=== PATIENT | female | born 1995 | race African-American/Black ===

== ENCOUNTER 2017-04-01 20:00 | Inpatient (IN) ==
[2017-04-01] MEDS ORDERED: LIDOCAINE 1% 50 ML VIAL ONE (20:20)
[2017-04-01] MEDS ORDERED: MEPERIDINE 50 MG/1 ML VIAL ONE (20:20)
[2017-04-01] MEDS ORDERED: CARBOPROST TROMETHAMINE 250 MCG/ML AMP IM ONE (20:21)
[2017-04-01] MEDS ORDERED: miSOPROStol 200 MCG TABLET ONE (20:21)
[2017-04-01] MEDS ORDERED: ONDANSETRON 4 MG/2 ML VIAL ONE ×2 (20:21→21:16)
[2017-04-01] MEDS ORDERED: OXYTOCIN/LR 20 UNIT/1,000 ML BAG IV ONE ×3 (20:21→21:49)
[2017-04-01] MEDS ORDERED: ACETAMINOPHEN 325 MG TABLET PO PRN ×2 (20:34→21:49)
[2017-04-01] MEDS ORDERED: BUTORPHANOL 2 MG/ML VIAL IV PRN (20:34)
[2017-04-01] MEDS ORDERED: ONDANSETRON 4 MG/2 ML VIAL IV PRN ×2 (20:34→21:49)
[2017-04-01] MEDS ORDERED: ceFAZolin 2,000 MG in PREMIX 1 EACH IV ONE (20:56)
[2017-04-01] MEDS ORDERED: LACTATED RINGERS 1,000 ML IV SCH ×2 (21:00→22:00)
[2017-04-01] MEDS ORDERED: CITRIC ACID/SODIUM CITRATE 30 ML UDCUP ONE (21:02)
[2017-04-01] MEDS ORDERED: SUCCINYLCHOLINE 200 MG/10 ML VIAL ONE (21:16)
[2017-04-01] MEDS ORDERED: PROPOFOL 200 MG/20 ML VIAL IV ONE (21:16)
[2017-04-01 21:29] LABS: Basophils % 0.3 % (0.0-0.8); Eosinophils # 0.1 10*3/uL (0.0-0.87); Eosinophils % 0.6 % (0.00-10.9); Hemoglobin 11.5 GM/DL (12.0-16.0); Immature Granulocytes % 0.9 %; Immature Granulocytes Absolute 0.07 #; Lymphocytes % 24.7 % (21.3-54.2); Mean Corpuscular HGB Conc 34.8 GM/DL (32-36); Mean Corpuscular Hemoglobin 27 PG (27-34); Mean Corpuscular Volume 77.1 FL (87-102); Monocytes # 0.5 10*3/uL (0.11-0.8); Monocytes % 6.6 % (1.7-12.7); Neutrophils # 5.3 10*3/uL (1.4-7.4); Neutrophils % 66.9 % (38.7-73.9); Platelet Count 263 T/CUMM (130-400); Red Blood Count 4.28 MC/CUMM (3.8-5.5); Red Cell Distribution Width 12.3 % (9.3-17.3); White Blood Count 7.9 T/CUMM (4-12)
[2017-04-01] MEDS ORDERED: RHO(D) IMMUNE GLOBULIN 300 MCG SYRINGE IM ONE (21:49)
[2017-04-01] MEDS ORDERED: SIMETHICONE CHEW 80 MG TABLET PO PRN (21:49)
[2017-04-01] MEDS ORDERED: MAGNESIUM HYDROXIDE SUSP 30 ML UDCUP PO PRN (21:49)
--- NOTE | 2017-04-01 21:52 | Operative Note ---
Date of procedure: 04/01/17 Procedure Preformed: Following informed consent patient taken to the operating room where general anesthesia was administered without difficulty. She is prepped and draped in usual fashion placed in dorsal supine position with a leftward tilt. A Pfannenstiel skin incision made with scalpel and carried through to the underlying layer fascia with Bovie. The fascia with incision was excised midlines to lateral with Owens scissors. The inferior and superior aspects of the fascial incision were grasped with [place] clamps, elevated and the rectus muscles dissected off bluntly. The rectus muscles were then midline and the peritoneum identified and entered with Metzenbaum scissors. The was then extends superiorly and inferiorly with good visualization of the bladder. Bladder blade was then reinserted and the uterus incised in transverse fashion with scalpel. A stillborn was delivered and handed off to the waiting windows systems admin. Baby was extremely hydropic with no signs of life, cord blood was sent. The placenta was then removed manually and the uterus cleared all clots and debris. The uterine incision with #1 Vicryl in a running locked fashion. A second layer same suture was used to obtain hemostasis. The gutters and cleared of all clots and debris and once again hemostasis will be satisfactory. Therefore all instruments from the abdomen. The fascia was repaired with [0] Vicryl in a running fashion. Skin pleasant and soft geoffrey. At the end of the procedure all sponge lap needle counts correct 2. Baby and mother in stable condition. Surgeon / Physician: Kevin De La Cruz Post-op diagnosis: other (Stillborn infant with evidence of hydrops) Findings: Liveborn Specimens: other (Placenta) Estimated blood loss: other (500 mL) Condition: stable Anesthesia: GETA Disposition: floor
[2017-04-01] MEDS ORDERED: fentaNYL 100 MCG/2 ML VIAL ONE (22:19)
[2017-04-01] MEDS: MEPERIDINE 50 MG/1 ML VIAL IV PRN (23:30)
[2017-04-02] MEDS: IBUPROFEN 800 MG TABLET PO PRN ×2 (02:00→13:00)
[2017-04-02] MEDS: MEPERIDINE 50 MG/1 ML VIAL IV PRN ×2 (02:30→05:40)
[2017-04-02 06:44] LABS: Basophils % 0.2 % (0.0-0.8); Immature Granulocytes % 0.5 %; Immature Granulocytes Absolute 0.07 #; Lymphocytes # 1.1 10*3/uL (1.4-4.0); Lymphocytes % 8.6 % (21.3-54.2); Mean Corpuscular HGB Conc 35.2 GM/DL (32-36); Mean Corpuscular Hemoglobin 27 PG (27-34); Mean Corpuscular Volume 77.6 FL (87-102); Mean Platelet Volume 10.7 FL (9.6-12.0); Monocytes # 0.8 10*3/uL (0.11-0.8); Monocytes % 6.2 % (1.7-12.7); Neutrophils # 11.1 10*3/uL (1.4-7.4); Neutrophils % 84.5 % (38.7-73.9); Red Cell Distribution Width 12.3 % (9.3-17.3)
[2017-04-02 06:56] LABS: Hemoglobin 8.8 GM/DL (12.0-16.0); Platelet Count 183 T/CUMM (130-400); Red Blood Count 3.22 MC/CUMM (3.8-5.5); White Blood Count 13.1 T/CUMM (4-12)
[2017-04-02] MEDS: DOCUSATE SODIUM 100 MG CAPSULE PO SCH ×2 (08:37→21:15)
[2017-04-02] MEDS: MULTIVITAMIN (PRENATAL) TABLET PO SCH (08:37)
--- NOTE | 2017-04-02 13:37 | OB/GYN Progress Note ---
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 - Constitutional Vitals: Vital Signs Temp Pulse Resp BP Pulse Ox 04/02/17 11:34 97.8 F 68 20 131/73 98 04/02/17 07:11 97.8 F 70 18 128/69 99 04/02/17 04:30 97.8 F 82 20 138/89 99 04/02/17 03:30 97.4 F L 74 18 131/91 99 04/02/17 02:30 91 H 20 159/81 99 04/02/17 02:00 64 18 159/92 99 04/02/17 01:30 97.8 F 69 20 139/87 99 04/02/17 00:34 71 18 140/97 04/01/17 23:34 76 18 139/78 04/01/17 23:04 68 18 151/72 04/01/17 22:34 77 18 160/91 04/01/17 22:04 97.8 F 77 18 160/91 04/01/17 21:49 97.7 F 84 18 148/72 General appearance: no acute distress - Gyencological / Post Surgical Post Surgical Exam Extremities 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: Present: normal Abdomen obstetrics progress note: Present: normal appearance, soft Incision OB: Present: normal, dry, intact - Head Head exam: Present: normocephalic - Respiratory Respiratory exam: Present: clear to auscultation bilaterally - Cardiovascular Cardiovascular exam: Present: regular rate and rhythm - GI/Abdominal GI/Abdominal exam: Present: normal bowel sounds - Extremities Exam Extremities exam: Present: normal inspection - Back Exam Back exam: Present: normal inspection - Neurological Exam Neurological exam: Present: alert, oriented X3 - Psychiatric Psychiatric exam: Present: normal affect, normal mood - Skin Skin exam: Present: normal color, warm Results - Labs CBC & BMP: 04/02/17 06:19
--- NOTE | 2017-04-02 13:39 | Discharge Summary ---
Hospital Course - Hospital Course Hospital Course: This is a 21-year-old female who presented to labor and delivery at 30 weeks gestation in active labor. Upon admission she was noted to be completely dilated completely effaced with bulging membranes. She subsequently underwent a primary section secondary to nonreassuring heart tracing and arrest of descent. Patient delivered a stillborn hydropic infant. Hospital course unremarkable day #2 she is ready for discharge Diagnosis - Discharge Diagnosis (1) Stillbirth with antepartum Status: Acute (2) Delivered by section Status: Acute Specialty Discharge - Follow Up or Referrals Follow up with: Kevin De La Cruz MD [Physician] - 04/09/17 10:30 am Discharge Plan - Discharge Data Disposition: Disch To Home/Self Care Condition at Discharge: Stable Discharge Diet: advance to your usual diet Activity: resume usual activities as tolerated, no lifting, other (Pelvic rest) Hygiene: may shower Weight Bearing at Discharge: weight bear as tolerated Driving: not until seen by doctor Contact your physician if you experience:: fever over 101, Difficulty voiding, Redness or swelling, Nausea/Vomiting, Shortness of breath, Bleeding, pain uncontrolled by pain medications - Discharge Medications New HYDROcodone/ACETAMIN 5-325 [[place] 5-325] 1 - 2 tablet PO Q6H PRN #30 tablet PRN Reason: Abdominal Pain No Action Ibuprofen Tab [Motrin Tab] 800 mg PO Q6H PRN #60 tablet PRN Reason: Pain Moderate (4-7) predniSONE TAB [PredniSONE] 20 mg PO DAILY #15 tablet Azithromycin Tab [Zithromax Tab] 500 mg PO DAILY #6 tablet - Follow Up or Referral Follow Up: Kevin De La Cruz MD [Physician] - 04/09/17 10:30 am - Forms/Instructions Instructions: Section (DC), Perineal Care (DC), Bleeding (DC) Exam - Constitutional Vitals: Period Temp Pulse Resp BP Sys/[place] Pulse Ox Last 24 Hr 97.4 F-97.8 F 64-91 18-20 128-160/69-97 98-99 General appearance: no acute distress - Head Head exam: Present: normocephalic - ENT ENT exam: Present: normal exam - Neck Neck exam: Present: normal inspection - Respiratory Respiratory exam: Present: clear to auscultation bilaterally - Cardiovascular Cardiovascular exam: Present: regular rate and rhythm - GI/Abdominal GI/Abdominal exam: Present: normal bowel sounds, soft - Extremities Exam Extremities exam: Present: normal inspection - Back Exam Back exam: Present: normal inspection - Neurological Exam Neurological exam: Present: alert, oriented X3 - Psychiatric Psychiatric exam: Present: normal affect, normal mood - Skin Skin exam: Present: normal color, warm Discharge Results Labs on day of discharge: Labs from last 24 hours 04/02/17 04/01/17 04/01/17 06:19 21:05 21:05 WBC 13.1 H D RBC 3.22 L D Hgb 8.8 L D Hct 25.0 L MCV 77.6 L MCH 27 MCHC 35.2 RDW 12.3 Plt Count 183 D MPV 10.7 Neut % (Auto) 84.5 H Lymph % (Auto) 8.6 L Emmet % (Auto) 6.2 Eos % (Auto) 0.0 Baso % (Auto) 0.2 Neut # (Auto) 11.1 H Lymph # (Auto) 1.1 L Emmet # (Auto) 0.8 Eos # (Auto) 0.0 Baso # (Auto) 0.0 Immature Gran % 0.5 Nucleated RBC % 0.0 Immature Gran # 0.07 Nucleated RBCs # 0.00 Treponema pallidum IgG Nonreactive Blood Type O POSITIVE Antibody Screen Negative 04/01/17 21:05 WBC 7.9 RBC 4.28 Hgb 11.5 L Hct 33.0 L MCV 77.1 L MCH 27 MCHC 34.8 RDW 12.3 Plt Count 263 MPV 11.0 Neut % (Auto) 66.9 Lymph % (Auto) 24.7 Emmet % (Auto) 6.6 Eos % (Auto) 0.6 Baso % (Auto) 0.3 Neut # (Auto) 5.3 Lymph # (Auto) 2.0 Emmet # (Auto) 0.5 Eos # (Auto) 0.1 Baso # (Auto) 0.0 Immature Gran % 0.9 Nucleated RBC % 0.0 Immature Gran # 0.07 Nucleated RBCs # 0.00 Treponema pallidum IgG Blood Type Antibody Screen DS: Provider Date of admission: 04/01/17 20:34 Primary care physician: . No PCP Attending physician on admission: Kevin De La Cruz MD Consults: 04/01/17 20:34 Consult to Anesthesiology [CONS] Routine Consulting Provider: Reason for Anesthesiology: Epidural Consult Comment: Epidural for pain managment 04/01/17 21:49 Consult to Natural Remedy Consultant [CONS] Routine Consult Natural Remedy Consultant: Breast Feeding 04/01/17 23:43 Consult to Pastoral Services [CONS] Routine Comment: Pastoral Screen: Declines Visit Pastoral Screen Source of Request: Patient Discharging clinician: Kevin De La Cruz MD
--- NOTE | 2017-04-02 13:41 | OB/GYN History & Physical ---
History of Present Illness Chief complaint: Labor History of present illness: Ms. Garcia is a 21 year old female At 30 weeks gestation who presented full blown labor. Patient with history of abnormal anatomy ultrasounds concerning for trisomy 18. However all blood studies were negative. Patient was aware of the probability that this baby was suffering from some type of syndrome however the specific syndrome was unknown. Home Medications Medication Instructions Recorded Confirmed Type Ibuprofen Tab [Motrin Tab] 800 mg PO Q6H PRN #60 tablet 04/01/16 Rx Allergies Allergy/AdvReac Type Severity Reaction Status Date / Time No Known Allergies Allergy Verified 07/25/15 21:01 12 point system: reviewed and no additional remarkable complaints except as stated Medical,Surgical,& Family Hx - Medical History Musculoskeletal: No history of: Amputation Hematology: History of: Blood Disorders (sickle cell trait) Reproductive: History of: Complication (has seen Dr. 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: Vital Signs Temp Pulse Resp BP Pulse Ox 04/02/17 11:34 97.8 F 68 20 131/73 98 04/02/17 07:11 97.8 F 70 18 128/69 99 04/02/17 04:30 97.8 F 82 20 138/89 99 04/02/17 03:30 97.4 F L 74 18 131/91 99 04/02/17 02:30 91 H 20 159/81 99 04/02/17 02:00 64 18 159/92 99 04/02/17 01:30 97.8 F 69 20 139/87 99 04/02/17 00:34 71 18 140/97 04/01/17 23:34 76 18 139/78 04/01/17 23:04 68 18 151/72 04/01/17 22:34 77 18 160/91 04/01/17 22:04 97.8 F 77 18 160/91 04/01/17 21:49 97.7 F 84 18 148/72 General appearance: mild distress - Antepartum / Post Antepartum Exam Cervix - Dilatation: Complete Effacement: Complete Station: -3 Rupture: Artificial rupture membranes with clear fluid Presentation: Vertex Heart Rate: 140s 130s with occasional variable decelerations [place]: Contractions every 2-4 minutes Abdomen obstetrics: Present: bowel sounds normal - Head Head exam: Present: normocephalic - ENT ENT exam: Present: normal exam - Neck Neck exam: Present: normal inspection - Respiratory Respiratory exam: Present: clear to auscultation bilaterally - Cardiovascular Cardiovascular exam: Present: regular rate and rhythm - GI/Abdominal GI/Abdominal exam: Present: normal bowel sounds - Extremities Exam Extremities exam: Present: normal inspection - Back Exam Back exam: Present: normal inspection - Neurological Exam Neurological exam: Present: alert, oriented X3 - Psychiatric Psychiatric exam: Present: normal affect, normal mood - Skin Skin exam: Present: normal color Assessment and Plan (1) Stillbirth with antepartum Status: Acute Current Visit: Yes (2) Delivered by section Status: Acute Assessment and plan: Routine and postoperative care Current Visit: Yes (3) labor in third trimester with delivery Status: Acute Current Visit: Yes Results - Labs CBC & BMP: 04/02/17 06:19 Quality Measures - VTE Contraindication to Pharmacological VTE Prophylaxis: High Risk of Bleeding
--- NOTE | 2017-04-02 15:34 | Anesthesia Post-Op ---
Anesthesia Post OP - Post Ansesthetic Evaluation Patient seen in post op: Yes Resp: within normal limits CV: within normal limits Mental: within normal limits Temp: within normal limits [id number]: within normal limits Nausea and Vomiting: within normal limits Pain: within normal limits
[2017-04-03] MEDS ORDERED: diphenhydrAMINE CAP 25 MG CAPSULE ONE (00:04)
[2017-04-03] MEDS ORDERED: diphenhydrAMINE CAP 25 MG CAPSULE PO PRN (00:45)
[2017-04-03 07:35] VITALS: BP 136/95
[2017-04-03] MEDS: IBUPROFEN 800 MG TABLET PO PRN (09:17)
[2017-04-03] MEDS: MULTIVITAMIN (PRENATAL) TABLET PO SCH (09:50)
[2017-04-03] MEDS: DOCUSATE SODIUM 100 MG CAPSULE PO SCH (09:50)
--- NOTE | 2017-04-03 09:54 | OB/GYN Progress Note ---
Assessment and Plan (1) Stillbirth with antepartum Status: Acute Current Visit: Yes (2) Delivered by section Status: Acute Assessment and plan: POD #2 s/p stat wiht still born at 30 weeks. precautions given. 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 She is also tolerating PO well. Her pain is under control with PO medication. She desires to go home Exam CHEMIST PHYSICAL - Constitutional Vitals: Vital Signs Temp Pulse Resp BP Pulse Ox 04/03/17 07:34 98 F 81 20 136/95 98 04/03/17 04:00 97.1 F L 62 18 125/62 99 04/03/17 02:00 18 04/02/17 20:00 97.0 F L 78 20 119/72 100 04/02/17 15:47 97.8 F 71 20 124/78 98 04/02/17 11:34 97.8 F 68 20 131/73 98 General appearance: normal weight, no acute distress - Respiratory Respiratory exam: Absent: accessory muscle use - Cardiovascular Cardiovascular exam: Present: regular rate and rhythm - GI/Abdominal GI/Abdominal exam: Present: soft. Absent: guarding, rebound - Extremities Exam Extremities exam: Absent: calf tenderness - Neurological Exam Neurological exam: Present: alert, oriented X3 - Psychiatric Psychiatric exam: Present: normal affect, normal mood Results - Labs CBC & BMP: 04/02/17 06:19
--- NOTE | 2017-04-07 13:18 | Pathology Report from [facility] ---
[facility] ACCESSION # : [id number] PATIENT NAME : Joe Gamez ORDERING DR : LISA VAN MD CLINICAL HX: Intrauterine @ 30 + weeks. Non reassuring heart tones. Trisomy 18. POST-OP DX: Same SPECIMEN INFO: Placenta GROSS DESCRIPTION: Received fresh labeled JOE GAMEZ & PLACENTA is a 635 gm placenta measuring 17.5 x 16.0 x 3.5 cm. The membranes are shaver and translucent. The umbilical cord measures 12.5 cm, contains three vessels and is eccentrically inserted. The surface is blue zelaya and intact. The maternal surface displays moderately disrupted red shaver cotyledons with no abnormalities grossly appreciated upon sectioning. Sections submitted A- membranes and cord, B- and maternal surfaces. DIAGNOSIS FOR JOE GAMEZ: PLACENTA, MEMBRANES, UMBILICAL CORD: Focal placental infarction, mild intervillous blood. Tri-vessel umbilical cord, eccentrically inserted. Membranes with focal chronic inflammation and attached blood. COLLECTED DATE: 04/03/2017 [facility] REPORT DATE: 04/06/2017 ELECTRONICALLY SIGNED BY: Timmy Hernandez M.D. 04/06/2017 - 10:24:55 [facility]
== END 2017-04-03 10:25 | disposition home or self-care (01) | DRG 540 ==
LOC: N.LDOUT 20:00 → N.LD 20:04 → N.OB 04-02 01:30
PROVIDERS: ADMIT Obstetrics & Gynecology; ATTEND Obstetrics & Gynecology
PROC: LDCSECT (ICD-10-PCS; 2017-04-01 21:00)

== ENCOUNTER 2019-06-13 05:34 | Inpatient (IN) ==
[2019-06-13] MEDS ORDERED: BUTORPHANOL 2 MG/ML VIAL IV PRN (05:43)
[2019-06-13] MEDS ORDERED: MEPERIDINE 50 MG/1 ML VIAL IM PRN (05:43)
[2019-06-13] MEDS ORDERED: ONDANSETRON 4 MG/2 ML VIAL IV PRN ×2 (05:43→17:42)
[2019-06-13] MEDS ORDERED: AMPICILLIN INJ 2,000 MG in SODIUM CHLORIDE 0.9% 100 ML IV ONE (05:46)
[2019-06-13] MEDS ORDERED: OXYTOCIN/LR 20 UNIT/1,000 ML BAG IV SCH (06:00)
[2019-06-13] MEDS ORDERED: LACTATED RINGERS 1,000 ML IV SCH (06:00)
[2019-06-13 06:30] LABS: Basophils % 0.4 % (0.0-0.8); Eosinophils % 0.5 % (0.00-10.9); Hematocrit 34.5 VOL% (35.7-47.0); Hemoglobin 11.4 GM/DL (12.0-16.0); Immature Granulocytes % 0.4 %; Immature Granulocytes Absolute 0.03 #; Lymphocytes # 2.1 10*3/uL (1.4-4.0); Lymphocytes % 26.3 % (21.3-54.2); Mean Corpuscular Volume 81.4 FL (87-102); Mean Platelet Volume 10.5 FL (9.6-12.0); Monocytes % 5.2 % (1.7-12.7); Neutrophils % 67.2 % (38.7-73.9); Platelet Count 233 T/CUMM (130-400); Red Blood Count 4.24 MC/CUMM (3.8-5.5); Red Cell Distribution Width 13.5 % (9.3-17.3); White Blood Count 8.1 T/CUMM (4-12)
[2019-06-13 06:46] LABS: Albumin 2.6 G/DL (3.4-5.0); Bilirubin,Total 0.5 MG/DL (0.2-1.0); Calcium 8.6 MG/DL (8.5-10.1); Osmolality,Calculated 274.4 MOS/KG (273-304); Total Protein 6.1 G/DL (6.4-8.3)
[2019-06-13] MEDS ORDERED: NALOXONE 0.4 MG/ML VIAL IV PRN (08:05)
[2019-06-13] MEDS ORDERED: CITRIC ACID/SODIUM CITRATE 30 ML UDCUP PO ONE (08:05)
[2019-06-13] MEDS ORDERED: diphenhydrAMINE 50 MG/1 ML VIAL IV PRN (08:05)
[2019-06-13] MEDS ORDERED: FAMOTIDINE 20 MG/2 ML VIAL IV ONE (08:05)
[2019-06-13] MEDS ORDERED: PROMETHAZINE 25 MG/1 ML VIAL IM ONE (08:05)
[2019-06-13] MEDS ORDERED: hydrOXYzine HCL 25 MG/1 ML VIAL IM PRN (08:05)
[2019-06-13] MEDS ORDERED: ePHEDrine 50 MG/ML AMP IV PRN (08:05)
[2019-06-13] MEDS ORDERED: fentaNYL 2 MCG/ROPIV 0.2% EPID 100 ML EPIDURAL SCH (08:30)
[2019-06-13] MEDS: AMPICILLIN INJ 1,000 MG in SODIUM CHLORIDE 0.9% 100 ML IV SCH ×2 (10:31→14:29)
[2019-06-13 13:26] LABS: Apearance,Urine CLEAR (Clear); Bacteria,Urine Occasional /HPF (Few); Bilirubin,Urine Negative (Negative); Blood, Urine Negative (Negative); Glucose,Urine (UA) Negative (Negative); Ketones,Urine Negative (Negative); Mucus,Urine Occasional /LPF (Occasional); Nitrite,Urine Negative (Negative); Protein,Urine Negative; RBC,Urine <1 /HPF (0-4); Squamous Epithelial Cell,Urine Occasional /HPF (0-10); Transitional Epi Cells,Urine Occasional /HPF (<1); Urine Color Yellow (Yellow); Urine Specific Gravity 1.018 (1.001-1.035); Urine Urobilinogen < 2.0 EU/DL (0.2-1.0); WBC,Urine 3 /HPF (0-6)
[2019-06-13] MEDS ORDERED: miSOPROStol 200 MCG TABLET ONE (17:08)
[2019-06-13] MEDS ORDERED: OXYTOCIN 10 UNIT/ML VIAL ONE (17:08)
[2019-06-13] MEDS ORDERED: TRANEXAMIC ACID 1,000 MG/10 ML VIAL ONE (17:08)
[2019-06-13] MEDS ORDERED: METHYLERGONOVINE 0.2 MG/1 ML AMP ONE (17:09)
[2019-06-13] MEDS ORDERED: CARBOPROST TROMETHAMINE 250 MCG/ML AMP IM ONE (17:09)
[2019-06-13] MEDS ORDERED: BENZOCAINE 20%/MENTHOL 0.5% SPRAY 56 GM CAN TOP PRN (17:42)
[2019-06-13] MEDS ORDERED: ACETAMINOPHEN 325 MG TABLET PO PRN (17:42)
[2019-06-13] MEDS ORDERED: LANOLIN 50% CREAM 0.3 OZ TUBE TOP PRN (17:42)
[2019-06-13] MEDS ORDERED: WITCH HAZEL PADS 100/JAR TOP PRN (17:42)
[2019-06-13] MEDS ORDERED: BISACODYL 10 MG SUPP RECTAL PRN (17:42)
[2019-06-13] MEDS ORDERED: DIPH/TET/ACEL PERT BOOSTER VACCINE 0.5 ML VIAL IM ONE (17:42)
[2019-06-13] MEDS ORDERED: HYDROCORTISONE 2.5% RECTAL CREAM 30 GM TUBE TOP PRN (17:42)
[2019-06-13] MEDS ORDERED: diphenhydrAMINE CAP 25 MG CAPSULE PO PRN (21:45)
[2019-06-13] MEDS: DOCUSATE SODIUM 100 MG CAPSULE PO SCH (22:11)
[2019-06-13] MEDS: FERROUS SULFATE 325 MG TABLET PO SCH (22:11)
[2019-06-14] MEDS: IBUPROFEN 800 MG TABLET PO PRN ×2 (01:27→19:44)
[2019-06-14] MEDS: ACETAMINOPHEN/CODEINE 300-30 MG TABLET PO PRN ×3 (02:19→23:31)
[2019-06-14 02:50] LABS: Basophils % 0.3 % (0.0-0.8); Eosinophils % 0.3 % (0.00-10.9); Hematocrit 33.3 VOL% (35.7-47.0); Hemoglobin 10.9 GM/DL (12.0-16.0); Immature Granulocytes % 0.4 %; Immature Granulocytes Absolute 0.05 #; Lymphocytes # 2.1 10*3/uL (1.4-4.0); Lymphocytes % 17.3 % (21.3-54.2); Mean Corpuscular HGB Conc 32.7 GM/DL (32-36); Mean Corpuscular Volume 81.6 FL (87-102); Mean Platelet Volume 10.8 FL (9.6-12.0); Neutrophils % 76.7 % (38.7-73.9); Platelet Count 214 T/CUMM (130-400); Red Blood Count 4.08 MC/CUMM (3.8-5.5); Red Cell Distribution Width 13.5 % (9.3-17.3)
[2019-06-14] MEDS ORDERED: SODIUM CHLORIDE 0.9% 1,000 ML IV PRN (08:07)
[2019-06-14] MEDS: FERROUS SULFATE 325 MG TABLET PO SCH ×2 (09:54→21:17)
[2019-06-14] MEDS: DOCUSATE SODIUM 100 MG CAPSULE PO SCH ×2 (09:54→21:17)
[2019-06-15 07:35] VITALS: BP 117/71
[2019-06-15] MEDS: DOCUSATE SODIUM 100 MG CAPSULE PO SCH (09:42)
[2019-06-15] MEDS: FERROUS SULFATE 325 MG TABLET PO SCH (09:42)
== END 2019-06-15 11:30 | disposition home or self-care (01) | DRG 560 ==
LOC: N.LD 05:34 → N.OB 21:02
PROVIDERS: ADMIT Obstetrics & Gynecology; ATTEND Obstetrics & Gynecology

== ENCOUNTER 2020-08-22 14:47 | Inpatient (IN) ==
[2020-08-22] MEDS ORDERED: AMPICILLIN 2,000 MG VIAL IM ONE (15:10)
[2020-08-22] MEDS ORDERED: BUTORPHANOL 2 MG/ML VIAL IV PRN (15:12)
[2020-08-22] MEDS ORDERED: ONDANSETRON 4 MG/2 ML VIAL IV PRN (15:12)
[2020-08-22] MEDS ORDERED: MEPERIDINE 50 MG/1 ML VIAL IV PRN (15:12)
[2020-08-22] MEDS ORDERED: SODIUM CHLORIDE 0.9% 100 ML IV ONE (15:19)
[2020-08-22] MEDS ORDERED: AMPICILLIN INJ 2,000 MG in SODIUM CHLORIDE 0.9% 100 ML IV ONE (15:23)
[2020-08-22] MEDS ORDERED: OXYTOCIN/LR 20 UNIT/1,000 ML BAG IV SCH (15:30)
[2020-08-22] MEDS: LACTATED RINGERS 1,000 ML IV SCH ×2 (15:41→17:34)
[2020-08-22 15:43] LABS: Basophils % 0.2 % (0.0-0.8); Eosinophils % 0.4 % (0.00-10.9); Hematocrit 32.5 VOL% (35.7-47.0); Hemoglobin 11.1 GM/DL (12.0-16.0); Immature Granulocytes % 0.6 %; Immature Granulocytes Absolute 0.05 #; Lymphocytes # 1.6 10*3/uL (1.4-4.0); Lymphocytes % 17.9 % (21.3-54.2); Mean Corpuscular HGB Conc 34.2 GM/DL (32-36); Mean Corpuscular Volume 83.8 FL (87-102); Mean Platelet Volume 10.2 FL (9.6-12.0); Monocytes % 5.5 % (1.7-12.7); Neutrophils % 75.4 % (38.7-73.9); Platelet Count 230 T/CUMM (130-400); Red Blood Count 3.88 MC/CUMM (3.8-5.5); Red Cell Distribution Width 15.1 % (9.3-17.3)
[2020-08-22] MEDS ORDERED: AMPICILLIN INJ 1,000 MG in SODIUM CHLORIDE 0.9% 100 ML IV SCH ×2 (19:30→19:45)
[2020-08-22] MEDS ORDERED: NALOXONE 0.4 MG/ML VIAL IV PRN (19:56)
[2020-08-22] MEDS ORDERED: hydrOXYzine HCL 25 MG/1 ML VIAL IM PRN (19:56)
[2020-08-22] MEDS ORDERED: diphenhydrAMINE 50 MG/1 ML VIAL IV PRN (19:56)
[2020-08-22] MEDS ORDERED: ePHEDrine 50 MG/ML VIAL IV PRN (19:56)
[2020-08-22] MEDS ORDERED: ONDANSETRON 4 MG/2 ML VIAL IV ONE (19:56)
[2020-08-22] MEDS ORDERED: PROMETHAZINE 25 MG/1 ML VIAL IM ONE (19:56)
[2020-08-22] MEDS ORDERED: fentaNYL 2 MCG/ROPIV 0.2% EPID 100 ML EPIDURAL SCH (20:00)
[2020-08-22] MEDS ORDERED: CITRIC ACID/SODIUM CITRATE 30 ML UDCUP PO ONE (20:01)
[2020-08-22] MEDS ORDERED: FAMOTIDINE 20 MG/2 ML VIAL IV ONE (20:02)
[2020-08-22] MEDS ORDERED: LANOLIN 50% CREAM 0.3 OZ TUBE TOP PRN (20:25)
[2020-08-22] MEDS ORDERED: WITCH HAZEL PADS 100/JAR TOP PRN (20:25)
[2020-08-22] MEDS ORDERED: BISACODYL 10 MG SUPP RECTAL PRN (20:25)
[2020-08-22] MEDS ORDERED: DIPH/TET/ACEL PERT BOOSTER VACCINE 0.5 ML VIAL IM ONE (20:25)
[2020-08-22] MEDS ORDERED: BENZOCAINE 20%/MENTHOL 0.5% SPRAY 56 GM CAN TOP PRN (20:25)
[2020-08-22] MEDS ORDERED: ACETAMINOPHEN 325 MG TABLET PO PRN (20:25)
[2020-08-22] MEDS ORDERED: HYDROCORTISONE 2.5% RECTAL CREAM 30 GM TUBE TOP PRN (20:25)
[2020-08-22 20:35] LABS: Cord Venous Blood HCO3 23.3 MMOL/L; Cord Venous Blood PCO2 34.1 MMHG; Cord Venous Blood PO2 44.1
[2020-08-22] MEDS: DOCUSATE SODIUM 100 MG CAPSULE PO SCH (23:20)
[2020-08-23] MEDS: IBUPROFEN 800 MG TABLET PO PRN ×3 (00:55→12:14)
[2020-08-23 06:19] LABS: Basophils % 0.3 % (0.0-0.8); Eosinophils # 0.1 10*3/uL (0.0-0.87); Eosinophils % 0.4 % (0.00-10.9); Hematocrit 33.9 VOL% (35.7-47.0); Hemoglobin 11.5 GM/DL (12.0-16.0); Immature Granulocytes % 0.5 %; Immature Granulocytes Absolute 0.07 #; Lymphocytes # 2.1 10*3/uL (1.4-4.0); Lymphocytes % 14.3 % (21.3-54.2); Mean Corpuscular HGB Conc 33.9 GM/DL (32-36); Mean Platelet Volume 10.5 FL (9.6-12.0); Monocytes % 6.1 % (1.7-12.7); Neutrophils % 78.4 % (38.7-73.9); Platelet Count 235 T/CUMM (130-400); Red Blood Count 3.99 MC/CUMM (3.8-5.5); Red Cell Distribution Width 14.8 % (9.3-17.3); White Blood Count 14.5 T/CUMM (4-12)
[2020-08-23] MEDS: DOCUSATE SODIUM 100 MG CAPSULE PO SCH ×2 (09:54→20:21)
[2020-08-23] MEDS: MULTIVITAMIN (PRENATAL) TABLET PO SCH (09:54)
[2020-08-23] MEDS: FERROUS SULFATE 325 MG TABLET PO SCH (09:54)
[2020-08-23] MEDS: oxyCODONE/ACETAMINOPHEN 5-325 MG TABLET PO PRN ×3 (10:05→22:13)
[2020-08-24] MEDS: IBUPROFEN 800 MG TABLET PO PRN (01:53)
[2020-08-24 10:25] VITALS: BP 120/74
[2020-08-24] MEDS: DOCUSATE SODIUM 100 MG CAPSULE PO SCH (10:53)
[2020-08-24] MEDS: FERROUS SULFATE 325 MG TABLET PO SCH (10:53)
[2020-08-24] MEDS: MULTIVITAMIN (PRENATAL) TABLET PO SCH (10:55)
[2020-08-24] MEDS: oxyCODONE/ACETAMINOPHEN 5-325 MG TABLET PO PRN (12:21)
== END 2020-08-24 13:40 | disposition home or self-care (01) | DRG 560 ==
LOC: N.LDOUT 14:47 → N.LD 14:48 → N.OB 23:35
PROVIDERS: ADMIT Pediatrics Neonatal-Perinatal Medicine; ATTEND Obstetrics & Gynecology